=== PATIENT | female | born 1980 | race African-American/Black ===

== ENCOUNTER 2016-09-28 15:47 | Emergency (ER) | payer OTHER ==
[2016-09-28 16:02] VITALS: BP 106/78
--- NOTE | 2016-09-28 16:26 | UC ---
HPI Febrile Illness - HPI Summary HPI Summary: 36 year old female presents complaining of headache, fever-like symptoms, feeling nauseated, fatigue, all over body aches, and ear pain which in worsened on the left side. Symptoms began last night, have worsened since presentation. Reports recent exposure to Influenza on her college campus. - History of Current Complaint Chief Complaint: UCGeneralIllness Time Seen by Provider: 09/28/16 16:10 Hx Obtained From: Patient Initial Severity: Worse Since: - Initial presentation Current Severity: Severe Aggravating Factors: Nothing Alleviating Factors: Nothing Associated Signs and Symptoms: Chills, Headache, Myalgia, Nausea, Weakness Related History: Exposure to: - Influenza - Additional Pertinent History Current Antibiotics: No Fever Diplomatic Officer Taken: Acetaminophen:, Ibuprofen: - Allergy/Home Medications Allergies/Adverse Reactions: Allergies Allergy/AdvReac Type Severity Reaction Status Date / Time No Known Allergies Allergy Verified 09/28/16 15:55 Home Medications: Home Medications [id number] W/ APAP [Tylenol Cold & Flu Severe [id number] mg] 1.5 tbsp PRN 09/28/16 [History] PMH/Surg Hx/FS Hx/Imm Hx Previously Healthy: Yes Endocrine/Hematology History: Reports: Hx Anemia - HX OF IN THE PAST- STATES NO LONGER Denies: Hx Diabetes, Hx Thyroid Disease Cardiovascular History: Denies: Hx Hypertension Respiratory History: Denies: Hx Asthma, Hx Chronic Obstructive Pulmonary Disease (COPD) GI History: Reports: Hx Gastroesophageal Reflux Disease - NO MEDICATION FOR AT THIS TIME Denies: Hx Ulcer Musculoskeletal History: Reports: Hx Tendonitis - HANDS Sensory History: Denies: Hx Contacts or Glasses, Hx Hearing Aid Opthamlomology History: Denies: Hx Contacts or Glasses Neurological History: Reports: Other Neuro Impairments/Disorders - ADD- ON MEDICATION FOR Psychiatric History: Reports: Hx Anxiety - ON MEDICATION FOR Denies: Hx of Violent Episodes Against Others - Cancer History Hx Hematologic Symptoms: No Hx Chemotherapy: No Hx Radiation Therapy: No Hx Palliative Cancer Treatment: No - Surgical History Surgery Procedure, Year, and Place: ADENOIDS REMOVED Hx Anesthesia Reactions: No - Immunization History Hx Pertussis Vaccination: No Immunizations Up to Date: Yes Infectious Disease History: No Infectious Disease History: Denies: Hx Hepatitis, Hx Human Immunodeficiency Virus (HIV), History Other Infectious Disease, Traveled Outside the [place] in Last 30 Days - Family History Known Family History: Positive: Hypertension - Social History Alcohol Use: None Substance Use Type: Reports: None Smoking Status (MU): Former Smoker Type: Cigarettes Amount Used/How Often: hasn't smoked in 4 days usually 1/2 ppd Length of Time of Smoking/Using Tobacco: 15+ YEARS Have You Smoked in the Last Year: Yes Review of Systems Constitutional: Fever, Chills, Fatigue Skin: Negative ENT: Dental Pain, Ear Ache, Nasal Discharge Gastrointestinal: Other - feeling nauseated Genitourinary: Negative Motor: Negative Neurovascular: Negative Musculoskeletal: Other: - all over body aches Neurological: Negative Psychological: Negative All Other Systems Reviewed And Are Negative: Yes Physical Exam Triage Information Reviewed: Yes Appearance: Ill-Appearing Vital Signs: Initial Vital Signs Temp 99.2 F 09/28/16 15:59 Pulse 128 09/28/16 15:59 Resp 20 09/28/16 15:59 BP 106/78 09/28/16 15:59 Pulse Ox 97 09/28/16 15:59 Vital Signs Reviewed: Yes Eye Exam: Normal ENT: Positive: Pharyngeal erythema, Nasal congestion, Nasal drainage, TM bulging - Left ear, TM red - Left earache Dental: Positive: Percussion Tenderness @ - Left upper jaw Neck: Positive: Supple. Negative: Nontender, No Lymphadenopathy, Nuchal Rigidity, Tenderness @ Respiratory Exam: Normal Respiratory: Positive: Chest non-tender, Lungs clear, Normal breath sounds, No respiratory distress, No accessory muscle use. Negative: Decreased breath sounds, Accessory muscle use, Wheezing Cardiovascular: Positive: RRR, No Murmur, Pulses Normal, Tachycardia Abdominal Exam: Normal Abdomen Description: Positive: Nontender, No Organomegaly, Soft Bowel Sounds: Positive: Present Musculoskeletal Exam: Normal Musculoskeletal: Positive: Strength Intact, ROM Intact, No Edema Neurological Exam: Normal Neurological: Positive: Alert Psychological Exam: Normal Skin Exam: Normal Course/Dx - Diagnoses Clinic Provider Diagnoses: Left Otitis Media. Influenza A Is Visit Related: No Discharge - Discharge Plan Condition: Stable Disposition: HOME Prescriptions: Amoxicillin CAP* 1,000 mg PO BID #20 cap Patient Education Materials: Influenza (ED), Otitis Media (ED) Forms: *School Release Referrals: John Cordova MD [Primary Care Provider] - If Needed Additional Instructions: As discussed, increase your fluid intake. Warm evan tea with honey and lemon added. Increase sleep. A cool mist humidifier may make your lungs more comfortable. An expectorant (cough medicine that loosens phlegm) can help. If you smoke, STOP!!! Call or return if you develop increasing fever, shortness of breath, chest pain , bloody sputum, or otherwise worsen. If you have not improved at all after several days, contact your primary care physician or return here.
[2016-09-28] MEDS ORDERED: Ibuprofen TAB* 600 MG PO ONE (17:11)
== END 2016-09-28 17:22 | disposition home or self-care (01) ==
LOC: UCEAST 15:47
DX: H66.92 Otitis media, unspecified, left ear (principal); J10.1 Influenza due to other identified influenza virus with other respiratory manifestations; Z87.891 Personal history of nicotine dependence
CPT/HCPCS: 87502; 99212; A9270-GY; G0463

== ENCOUNTER 2017-11-30 15:39 | Emergency (ER) | payer OTHER ==
[2017-11-30 17:23] LABS: ABS Basophils 0.1 10^3/ul (0-0.2); ABS Eosinophils 0.1 10^3/ul (0-0.6); ABS Lymphocytes 1.8 10^3/ul (1.0-4.8); ABS Monocytes 0.8 10^3/ul (0-0.8); ABS Neutrophils 7.1 10^3/ul (1.5-7.7); ABS Nucleated RBC 0 10^3/ul; Eosinophil % 0.6 % (0-6); Hematocrit 37 % (35-47); Hemoglobin 12.6 g/dl (12.0-16.0); Lymphocyte % 18.6 % (25-47); Mean Corpuscular HGB Conc 34 g/dl (31-36); Mean Corpuscular Hemoglobin 32 pg (27-31); Mean Corpuscular Volume 94 fL (80-97); Mean Platelet Volume 8.4 um3 (7.4-10.4); Nucleated Red Blood Cells % 0.1; Platelet Count 255 10^3/ul (150-450); Red Blood Count 3.93 10^6/ul (4.0-5.4); Red Cell Distribution Width 14 % (10.5-15); White Blood Count 9.9 10^3/ul (3.5-10.8)
[2017-11-30 17:40] LABS: EGFR Non-African American 71.3 (>60)
[2017-11-30 18:14] VITALS: BP 116/71
--- NOTE | 2017-12-02 11:47 | ED ---
Arturo Yap Angela, scribed for Montez Hopper MD on 11/30/17 at 1749 . Substance Abuse/Use - HPI Summary HPI Summary: This pt is a 37 y/o female presenting to [facility] c/o anxiety today. Pt states she stayed up last night using cocaine, marijuana and alcohol. She denies SI thoughts or plan, and HI thoughts or plan. Pt reports she has been using drugs and alcohol more lately. Pt notes she would like to start rehab to quit using drugs and alcohol. Per nurse's note, pt drinks 6-7 glasses of mixed drink daily. PMHx: anxiety. - History Of Current Complaint Chief Complaint: EDMentalHealth Stated Complaint: ANXIETY Time Seen by Provider: 11/30/17 15:59 Hx Obtained From: Patient Hx Last Menstrual Period: 09/11/16 Onset/Duration of Drug/ETOH Abuse: Days Ingestion History: Type/Name Of Drug - cocaine, marijuana, and alcohol Overdose Characteristics: Oral, Other Severity Currently: Moderate Character: Anxious Aggravating Factor(s): Nothing Alleviating Factor(s): Nothing Associated Signs And Symptoms: Other: - POS: anxiety. NEG: SI, HI - Allergies/Home Medications Allergies/Adverse Reactions: Allergies Allergy/AdvReac Type Severity Reaction Status Date / Time No Known Allergies Allergy Verified 09/28/16 15:55 Home Medications: Home Medications Amphetamine MIXED SALTS TAB* [Adderall TAB*] 20 mg PO DAILY 11/30/17 [History Confirmed 11/30/17] Cholecalciferol TAB* [Vitamin D TAB*] 1,000 unit PO DAILY 11/30/17 [History Confirmed 11/30/17] FLUoxetine CAP* [PROzac CAP*] 60 mg PO DAILY 11/30/17 [History Confirmed ] Ferrous Sulfate TAB* 325 mg PO TID 11/30/17 [History Confirmed 11/30/17] Omeprazole CAP* [Prilosec CAP* 20 MG] 20 mg PO DAILY 11/30/17 [History Confirmed 11/30/17] buPROPion SR TAB* [Wellbutrin SR TAB*] 100 mg PO BID 11/30/17 [History Confirmed 11/30/17] PMH/Surg Hx/FS Hx/Imm Hx Endocrine/Hematology History: Reports: Hx Anemia - HX OF IN THE PAST- STATES NO LONGER Denies: Hx Diabetes, Hx Thyroid Disease Cardiovascular History: Denies: Hx Hypertension Respiratory History: Denies: Hx Asthma, Hx Chronic Obstructive Pulmonary Disease (COPD) GI History: Reports: Hx Gastroesophageal Reflux Disease - NO MEDICATION FOR AT THIS TIME Denies: Hx Ulcer Musculoskeletal History: Reports: Hx Tendonitis - HANDS Sensory History: Denies: Hx Contacts or Glasses, Hx Hearing Aid Opthamlomology History: Denies: Hx Contacts or Glasses Neurological History: Reports: Other Neuro Impairments/Disorders - ADD- ON MEDICATION FOR Psychiatric History: Reports: Hx Anxiety - ON MEDICATION FOR Denies: Hx of Violent Episodes Against Others - Cancer History Hx Hematologic Symptoms: No Hx Chemotherapy: No Hx Radiation Therapy: No Hx Palliative Cancer Treatment: No - Surgical History Surgery Procedure, Year, and Place: ADENOIDS REMOVED Hx Anesthesia Reactions: No Infectious Disease History: No Infectious Disease History: Denies: Hx Hepatitis, Hx Human Immunodeficiency Virus (HIV), History Other Infectious Disease, Traveled Outside the [place] in Last 30 Days - Family History Known Family History: Positive: Hypertension - Social History Alcohol Use: None Substance Use Type: Reports: None Smoking Status (MU): Former Smoker Type: Cigarettes Amount Used/How Often: hasn't smoked in 4 days usually 1/2 ppd Length of Time of Smoking/Using Tobacco: 15+ YEARS Have You Smoked in the Last Year: Yes Review of Systems Negative: Fever, Chills Cardiovascular: Negative Respiratory: Negative Gastrointestinal: Negative Genitourinary: Negative Musculoskeletal: Negative Positive: Anxious. Negative: Other - SI or HI All Other Systems Reviewed And Are Negative: Yes Physical Exam - Summary Physical Exam Summary: VITAL SIGNS: Reviewed. GENERAL: Patient is a well-developed and nourished female who is lying comfortable in the stretcher. Patient is not in any acute respiratory distress. HEAD AND FACE: No signs of trauma. No ecchymosis, hematomas or skull depressions. No sinus tenderness. EYES: PERRLA, EOMI x 2, No injected conjunctiva, no nystagmus. EARS: Hearing grossly intact. Ear canals and tympanic membranes are within normal limits. MOUTH: Oropharynx within normal limits. NECK: Supple, trachea is midline, no adenopathy, no JVD, no carotid bruit, no c- spine tenderness, neck with full ROM. CHEST: Symmetric, no tenderness at palpation LUNGS: Clear to auscultation bilaterally. No wheezing or crackles. CVS: Regular rate and rhythm, S1 and S2 present, no murmurs or gallops appreciated. ABDOMEN: Soft, non-tender. No signs of distention. No rebound no guarding, and no masses palpated. Bowel sounds are normal. EXTREMITIES: FROM in all major joints, no edema, no cyanosis or clubbing. NEURO: Alert and oriented x 3. No acute neurological deficits. Speech is normal and follows commands. SKIN: Dry and warm Triage Information Reviewed: Yes Vital Signs On Initial Exam: Initial Vitals Temp Pulse Resp BP Pulse Ox 98.6 F 85 16 144/97 100 11/30/17 15:54 11/30/17 15:54 11/30/17 15:54 11/30/17 15:54 11/30/17 15:54 Vital Signs Reviewed: Yes Diagnostics - Vital Signs Vital Signs Temp Pulse Resp BP Pulse Ox 11/30/17 15:54 98.6 F 85 16 144/97 100 - Laboratory Result Diagrams: 11/30/17 17:16 11/30/17 17:16 Lab Statement: Any lab studies that have been ordered have been reviewed, and results considered in the medical decision making process. Re-Evaluation - Re-Evaluation First Eval Re-Evaluation Time: 16:00 Comment: Pt would like to be discharged at this time. Pt states she can stay with her uncle and he can drive her tomorrow to [place] in the morning. Pt notes that this is a safe place for her. Course/Dx - Course Assessment/Plan: This pt is a 37 y/o female presenting to [facility] c/o anxiety today. Pt states she stayed up last night using cocaine, marijuana and alcohol. She denies SI thoughts or plan, and HI thoughts or plan. Pt reports she has been using drugs and alcohol more lately. Pt notes she would like to start rehab to quit using drugs and alcohol. Per nurse's note, pt drinks 6-7 glasses of mixed drink daily. PMHx: anxiety. Test results without any significant abnormalities. Per ED nurse, pt has a secured bed in [place] today but pt wanted some support between now and her admission to [place], so she came to the ED. [employer] factory worker was called and said it is possible to attempt to arrange transport tonight. ED nurse reports the pt would like to be discharged at this time. Pt states she can stay with her uncle and he can drive her tomorrow to [place] in the morning. Pt notes that this is a safe place for her. Therefore she will be discharged to home with follow up from her PCP. I discussed all the findings and test results with the patient. All questions were answered to patient satisfaction. There were no further complaints or concerns. She is instructed to return to the ED for any worsening or new symptoms. Pt is hemodynamically stable, alert and oriented x3. - Diagnoses Provider Diagnoses: Polysubstance abuse Discharge - Sign-Out/Discharge Documenting (check all that apply): Discharge - discharge to home - Discharge Plan Condition: Stable Disposition: HOME Patient Education Materials: Polysubstance Abuse (ED) Referrals: John Cordova MD [Primary Care Provider] - 3 Days Additional Instructions: Please follow up with your primary care provider. RETURN TO THE ED FOR ANY NEW OR WORSENING SYMPTOMS. The documentation as recorded by the Arturo huddleston Angela accurately reflects the service I personally performed and the decisions made by me, Montez Hopper MD.
== END 2017-11-30 18:13 | disposition home or self-care (01) ==
LOC: ED 15:39
DX: F19.10 Other psychoactive substance abuse, uncomplicated (principal); F41.9 Anxiety disorder, unspecified
CPT/HCPCS: 36415; 80053; 80320; 80329; 84443; 85025; 99282; G0480

== ENCOUNTER 2017-12-08 18:25 | Emergency (ER) | payer OTHER ==
[2017-12-08 18:46] VITALS: BP 122/78
--- NOTE | 2017-12-08 19:49 | UC ---
Complaint Female HPI - HPI Summary HPI Summary: 37 y/o female presents to the urgent care c/o frequency and burning on urination since 12/06/2017. Pain is 3/10 w/ suprapubic pelvic pain and mild lower back pain. Pt has not taking anything to alleviate symptoms. LMP: 2017. Pt stats she saw mild blood when she was urinating this afternoon. Pt denies HX of STD's, fever, flank pain, abdominal pain, N/V/D. - History Of Current Complaint Chief Complaint: UCGU Stated Complaint: PAINFUL URINATION Time Seen by Provider: 12/08/17 19:46 Hx Obtained From: Patient Hx Last Menstrual Period: 12/02/17 ?: No Onset/Duration: Gradual Onset, Lasting Days - 2 days, Still Present, Worse Since - today Timing: Intermittent Severity Initially: Mild Severity Currently: Mild Pain Intensity: 3 Pain Scale Used: 0-10 Numeric Character: Burning Aggravating Factor(s): Urination Alleviating Factor(s): Nothing Associated Signs And Symptoms: Positive: Back Pain - lower back pain. Negative : Fever, Vaginal Bleeding/Discharge, Vaginal Discharge, Genital Blisters - Risk Factors Ectopic Risk Factor: Negative Ovarian Torsion Risk Factor: Negative - Allergies/Home Medications Allergies/Adverse Reactions: Allergies Allergy/AdvReac Type Severity Reaction Status Date / Time No Known Allergies Allergy Verified 12/08/17 18:46 PMH/Surg Hx/FS Hx/Imm Hx Previously Healthy: Yes - Pt denies PMHX - Surgical History Surgical History: Yes Surgery Procedure, Year, and Place: ADENOIDS REMOVED - Family History Known Family History: Positive: Hypertension, Diabetes - Social History Occupation: Employed Full-time Lives: With Family Alcohol Use: Daily Alcohol Amount: 3 Substance Use Type: None Smoking Status (MU): Former Smoker Type: Cigarettes Amount Used/How Often: hasn't smoked in 4 days usually 1/2 ppd Length of Time of Smoking/Using Tobacco: 15+ YEARS Have You Smoked in the Last Year: Yes When Did the Patient Quit Smoking/Using Tobacco: DECEMBER 2015 Household Exposure Type: Cigarettes Review of Systems Constitutional: Negative Skin: Negative Eyes: Negative ENT: Negative Respiratory: Negative Cardiovascular: Negative Gastrointestinal: Negative Genitourinary: Dysuria, Hematuria, Frequency, Urgency Motor: Negative Neurovascular: Negative Musculoskeletal: Negative Neurological: Negative Psychological: Negative Is Patient Immunocompromised?: No All Other Systems Reviewed And Are Negative: Yes Physical Exam - Summary Physical Exam Summary: VITAL SIGNS: Reviewed. GENERAL: Patient is a well developed and nourished female who is sitting comfortable in the examining table. Patient is not in any acute respiratory distress. HEAD AND FACE: No signs of trauma. No ecchymosis, hematomas or skull depressions. No sinus tenderness. EYES: PERRLA, EOMI x 2, No injected conjunctiva, clear watery eyes, no nystagmus. No photophobia. EARS: Hearing grossly intact. Ear canals and tympanic membranes are within normal limits. MOUTH: pharynx with no erythema, no exudates,no palatal petechiae. no B/L tonsillar enlargement Uvula in midline. NECK: Supple, trachea is midline, no lymphadenopathy, no JVD, no carotid bruit, no c-spine tenderness, neck with full ROM. CHEST: Symmetric, no tenderness at palpation LUNGS: Clear to auscultation bilaterally. No wheezing or crackles. CVS: Regular rate and rhythm, S1 and S2 present, no murmurs or gallops appreciated. ABDOMEN: Soft, non-tender. No signs of distention. No rebound no guarding, and no masses palpated. Bowel sounds are normal. BACK:no scoliosis or lesions, non tender to palpation, No B/L CVA tenderness EXTREMITIES: FROM in all major joints, no edema, no cyanosis or clubbing. NEURO: Alert and oriented x 3. No acute neurological deficits. Speech is normal and follows commands. SKIN: Dry and warm Triage Information Reviewed: Yes Vital Signs: Initial Vital Signs Temp 98.7 F 12/08/17 18:41 Pulse 97 12/08/17 18:41 Resp 16 12/08/17 18:41 BP 122/78 12/08/17 18:41 Pulse Ox 100 12/08/17 18:41 Complaint Female Dx - Course Course Of Treatment: 37 y/o female presents to the urgent care c/o frequency and burning on urination since 12/06/2017. Pain is 3/10 w/ suprapubic pelvic pain and mild lower back pain. Pt has not taking anything to alleviate symptoms. Pt states she saw mild blood when she was urinating this afternoon.LMP : 12/02/2017. Pt denies HX of STD's, fever, flank pain, abdominal pain, N/V/D. Hx obtained. PE: WNL.UA ordered. UA results: Blood 3+, Leukoesterase 1+, nitrates 3+. Pt Rx Macrobid 100mg PO x 7 days. Pyridium 100mg PO TID x 2 days. Advised to increase fluid intake. Urine sent for culture if any abnormality Pt will be notified for further treatment. Pt advised If symptoms do not improve to return to the urgent care or f/u with PCP. Pt understood and agreed. Left the clinic ambulating. - Differential Dx/Diagnosis Differential Diagnosis/HQI/PQRI: Cervicitis, Pelvic Inflammatory Disease, Renal Colic, Sexually Transmitted Disease, Ureteral Stone, Urinary Tract Infection Provider Diagnoses: 1- Urinary tract infection. 2-dysuria Discharge - Sign-Out/Discharge Documenting (check all that apply): Discharge - Discharge Plan Condition: Stable Disposition: HOME Prescriptions: Nitrofurantoin Macrocrystals* [Macrodantin*] 100 mg PO BID #14 cap Phenazopyridine TAB* [Pyridium 100 mg TAB*] 100 mg PO TID #6 tab Patient Education Materials: Urinary Tract Infection in Women (ED), Dysuria (ED ) Referrals: John Cordova MD [Primary Care Provider] - 3 Days Additional Instructions: 1- Please take Macrobid 100mg PO x 7 days. Pyridium 100 mg PO TID x 2 days to alleviate urinary symptoms. Increase increase fluid intake. drink cranberry juice. 2-Urine sent for culture if any abnormality, you will be notified for further treatment. 3-If symptoms do not improve please return to the urgent care or f/u with her PCP in 2-3 days. - Billing Disposition and Condition Condition: STABLE Disposition: HOME
== END 2017-12-08 20:28 | disposition home or self-care (01) ==
LOC: UCEAST 18:25
DX: N39.0 Urinary tract infection, site not specified (principal); R31.9 Hematuria, unspecified; M54.5 Low back pain; R30.0 Dysuria; Z87.891 Personal history of nicotine dependence
CPT/HCPCS: 81003; 87077; 87086; 87186; 99212; G0463

== ENCOUNTER 2018-08-21 13:26 | Emergency (ER) | payer OTHER ==
[2018-08-21] MEDS ORDERED: diPHENhydraMINE PO* 25 MG PO ONE (13:41)
--- NOTE | 2018-08-21 13:43 | UC ---
Skin Complaint HPI - HPI Summary HPI Summary: 38-year-old woman comes in with a chief complaint of a rash on the left arm. She woke up yesterday morning with IT. She wonders if she got bit by a bug but she did not see any bugs. It itches. It spread a little bit since yesterday. Fevers or chills feels well otherwise no shortness of breath no difficulty swallowing. - History of Current Complaint Time Seen by Provider: 08/21/18 13:33 Stated Complaint: SKIN COMPLAINT Hx Last Menstrual Period: 12/02/17 - Allergy/Home Medications Allergies/Adverse Reactions: Allergies Allergy/AdvReac Type Severity Reaction Status Date / Time No Known Allergies Allergy Verified 08/21/18 13:39 PMH/Surg Hx/FS Hx/Imm Hx Previously Healthy: Yes - Surgical History Surgical History: Yes Surgery Procedure, Year, and Place: ADENOIDS REMOVED - Family History Known Family History: Positive: Hypertension, Diabetes - Social History Alcohol Use: Daily Alcohol Amount: 3 Substance Use Type: None Smoking Status (MU): Former Smoker Type: Cigarettes Amount Used/How Often: hasn't smoked in 4 days usually 1/2 ppd Length of Time of Smoking/Using Tobacco: 15+ YEARS Have You Smoked in the Last Year: Yes When Did the Patient Quit Smoking/Using Tobacco: DECEMBER 2015 Household Exposure Type: Cigarettes Review of Systems All Other Systems Reviewed And Are Negative: Yes Constitutional: Positive: Negative Skin: Positive: Rash Eyes: Positive: Negative ENT: Positive: Negative Respiratory: Positive: Negative Cardiovascular: Positive: Negative Gastrointestinal: Positive: Negative Motor: Positive: Negative Neurovascular: Positive: Negative Musculoskeletal: Positive: Negative Neurological: Positive: Negative Psychological: Positive: Negative Is Patient Immunocompromised?: No Physical Exam Triage Information Reviewed: Yes Appearance: Well-Appearing, No Pain Distress, Well-Nourished Vital Signs Reviewed: Yes Eye Exam: Normal Eyes: Positive: Conjunctiva Clear ENT: Positive: Pharynx normal. Negative: Muffled voice, Hoarse voice Neck exam: Normal Neck: Positive: Supple Respiratory: Positive: Lungs clear, Normal breath sounds, No respiratory distress Cardiovascular: Positive: RRR Musculoskeletal Exam: Normal Musculoskeletal: Positive: Strength Intact, ROM Intact Neurological Exam: Normal Neurological: Positive: Alert, Muscle Tone Normal Psychological Exam: Normal Psychological: Positive: Age Appropriate Behavior Skin: Positive: Other - On the left upper arm there is a 5 cm diameter raised rash. No streaking. It is not hot to touch. No drainage. Course/Dx - Course Course Of Treatment: Most probably the patient most probably the patient is responding to an insect bite locally. Patient has not tried any medications yet. Recommend atretic BenadryL. Also prescribed a Medrol Dosepak. The possibility of a cellulitis also prescribing Keflex. She has a follow-up appointment with her primary care doctor on August 26, 2018. Patient is to get recheck sooner if anything gets worse or any questions or concerns. - Diagnoses Provider Diagnosis: Rash Discharge - Sign-Out/Discharge Documenting (check all that apply): Patient Departure All imaging exams completed and their final reports reviewed: No Studies - Discharge Plan Condition: Stable Disposition: HOME Prescriptions: Cephalexin CAP* [Keflex CAP*] 500 mg PO QID #40 cap methylPREDNISolone [Medrol Dosepak 4 MG*] 0 mg PO .SEE JEROD INSTRUCTION #1 jerod Patient Education Materials: Acute Rash (ED) Referrals: John Cordova MD [Primary Care Provider] - Additional Instructions: FOLLOW UP WITH YOUR DOCTOR. TAKE BENADRYL 25MG EVERY 4 HOURS NEEDED. GET RECHECKED FOR ANY WORSENING OF YOUR CONDITION; SPREAD OF THE RASH, FEVER, YOU FEEL ILL OR QUESTIONS OR CONCERNS. - Billing Disposition and Condition Condition: STABLE Disposition: Home
[2018-08-21 13:45] VITALS: BP 108/69
== END 2018-08-21 13:53 | disposition home or self-care (01) ==
LOC: UCEAST 13:26
DX: R21 Rash and other nonspecific skin eruption (principal); Z87.891 Personal history of nicotine dependence
CPT/HCPCS: 99212; A9270-GY; G0463